=== PATIENT | male | born 1945 | race Caucasian/White ===

== ENCOUNTER → 2016-09-29 | Outpatient (CLI) | payer OTHER, MEDICAID | LOC: BHFA 13:15 | PROVIDERS: ATTEND Internal Medicine Cardiovascular Disease | DX: R09.89 Other specified symptoms and signs involving the circulatory and respiratory systems (principal) ==

== ENCOUNTER 2017-03-16 06:54 | Observation (INO) | payer OTHER, MEDICAID ==
--- NOTE | 2017-03-16 07:20 | EDPHY ---
HPI/HX/ROS/PE/MDM Narrative: CHIEF COMPLAINT: Nausea, vomiting HISTORY OF PRESENT ILLNESS: This is a 71-year-old male with history of type 2 diabetes as well as a history of a splenic abscess who presents with nausea and vomiting since 2 o'clock this morning. Patient woke his complaining of significant nausea. They report approximately 10 episodes of vomiting with " red brown" material. Patient has also had diarrhea. He denies a fever although he was quite chilled. reports that he is very diaphoretic whenever he vomits. He denies abdominal pain. History of lightheadedness, syncope, urinary complaints, chest pain, shortness of breath. Patient does have a history of neuropathy and uses marijuana products as well as CBD orals to control pain. He denies a recent increase in use. No history of ulcer disease, reflux, diverticulitis, or abdominal surgeries. states he has using metformin to control his diabetes. REVIEW OF SYSTEMS: Aside from elements discussed in the HPI, a comprehensive 10-point review of systems was reviewed and is negative. PAST MEDICAL HISTORY: Diabetes mellitus type II, splenic abscess. SOCIAL HISTORY: Nonsmoker, at bedside. Marijuana use for pain control. VITAL SIGNS: Reviewed by me GENERAL: Chills. Well-developed, well-nourished, resting comfortably in no respiratory distress. HEENT: Atraumatic. Eyes: No icterus, no injection. Mouth: dry mucous membranes. No erythema or lesions. Neck: supple with no adenopathy. LUNGS: Clear to auscultation bilaterally, no wheezes, rhonchi or rales. CARDIAC: Regular rate and rhythm, no rubs, murmurs or gallops. ABDOMEN: Soft, nontender, nondistended, bowel sounds normal. RECTAL: Large hemorrhoid. Greenish stool on glove. BACK: No CVA tenderness. EXTREMITIES: No trauma. No edema. Range of motion is normal throughout. NEURO: Alert and oriented, grossly nonfocal. SKIN: Cool and dry, no rash. PSYCHIATRIC: Normal mentation, no agitation. Portions of this note were transcribed by a medical office secretary. I personally performed a history, physical exam, medical decision making, and confirmed accuracy of information the transcribed note. ED Course: The 12 lead EKG was interpreted by myself. See hard copy and/or "tracemaster" electronic copy for interpretation. Sinus rhythm, rate 89. This patient is a 71 year old male presenting with five hour history of nausea and vomiting. Plan for IV fluids, Zofran for nausea, further evaluation. WBC elevated at 24. Plan for UA, CT abdomen. Stool positive for blood. Formed bowel movement, dark. 9:10 CT abdomen unremarkable. Splenic abscess reduced from last CT. Plan to admit for continued management of nausea and vomiting, further evaluation of elevated white blood cell count. 9:33 Spoke with hospitalist service. Dr. Tellez accepts admission. MDM: After obtaining the patients history and performing an examination, differential diagnosis considered included but was not limited to appendicitis, cholecystitis, gastritis, pancreatitis, kidney stones, urinary tract infections and other causes. - Data Points Imaging Results: Imaging Impressions Abdomen CT 03/16/17 07:47 Impression: 1. Size of a splenic hypodensity/fluid collection is much smaller compared to July. The current lesion of 3.9 x 2.3 cm may represent residual scar. If patient clinically is acutely infected, this may represent recurrent abscess, although I think imaging kapoor that is less likely. 2. Otherwise, stable CT scan without anything acute. Findings and recommendations discussed with Francine Muñoz M.D. at 0910 hours on March 16, 2017. Final report concurs with initial preliminary interpretation. Imaging: Discussed imaging studies w/ will call order clerk Radiologist Laboratory Results: Laboratory Results 03/16/17 07:18 03/16/17 07:18 03/16/17 03/16/17 03/16/17 07:18 07:18 07:15 WBC 24.28 10^3/uL H 10^3/uL (3.80-9.50) RBC 5.02 10^6/uL 10^6/uL (4.40-6.38) Hgb 15.4 g/dL g/dL (13.7-17.5) POC Hgb 16.7 gm/dL gm/dL (13.7-17.5) Hct 44.6 % % (40.0-51.0) POC Hct 49 % % (40-51) MCV 88.8 fL fL (81.5-99.8) MCH 30.7 pg pg (27.9-34.1) MCHC 34.5 g/dL g/dL (32.4-36.7) RDW 13.3 % % (11.5-15.2) Plt Count 466 10^3/uL H 10^3/uL (150-400) MPV 10.5 fL fL (8.7-11.7) Neut % (Auto) 92.9 % H % (39.3-74.2) Lymph % (Auto) 4.1 % L % (15.0-45.0) [place] % (Auto) 1.9 % L % (4.5-13.0) Eos % (Auto) 0.0 % L % (0.6-7.6) Baso % (Auto) 0.3 % % (0.3-1.7) Nucleat RBC Rel Count 0.0 % % (0.0-0.2) Absolute Neuts (auto) 22.57 10^3/uL H 10^3/uL (1.70-6.50) Absolute Lymphs (auto) 0.99 10^3/uL L 10^3/uL (1.00-3.00) Absolute Monos (auto) 0.45 10^3/uL 10^3/uL (0.30-0.80) Absolute Eos (auto) 0.00 10^3/uL L 10^3/uL (0.03-0.40) Absolute Basos (auto) 0.07 10^3/uL 10^3/uL (0.02-0.10) Absolute Nucleated RBC 0.00 10^3/uL 10^3/uL (0-0.01) Immature Gran % 0.8 % % (0.0-1.1) Immature Gran # 0.20 10^3/uL H 10^3/uL (0.00-0.10) POC Sodium 141 mEq/L mEq/L (134-144) Sodium 143 mEq/L mEq/L (134-144) POC Potassium 3.6 mEq/L mEq/L (3.3-5.0) Potassium 4.2 mEq/L mEq/L (3.5-5.2) POC Chloride 101 mEq/L mEq/L (97-110) Chloride 105 mEq/L mEq/L (97-110) Carbon Dioxide 20 mEq/l L mEq/l (22-31) Anion Gap 18 mEq/L H mEq/L (8-16) POC BUN 23 mg/dL mg/dL (7-23) BUN 21 mg/dL mg/dL (7-23) Creatinine 0.8 mg/dL mg/dL (0.7-1.3) POC Creatinine 0.8 mg/dL mg/dL (0.7-1.3) Estimated GFR > 60 Glucose 259 mg/dL H mg/dL (70-100) POC Glucose 255 mg/dL H mg/dL (70-100) Calcium 9.9 mg/dL mg/dL (8.5-10.4) Total Bilirubin 1.1 mg/dL mg/dL (0.1-1.4) Conjugated Bilirubin 0.4 mg/dL mg/dL (0.0-0.5) Unconjugated Bilirubin 0.7 mg/dL mg/dL (0.0-1.1) AST 23 IU/L IU/L (17-59) ALT 33 IU/L IU/L (21-72) Alkaline Phosphatase 87 IU/L IU/L (38-126) Troponin I < 0.012 ng/mL ng/mL (0-0.034) Total Protein 7.3 g/dL g/dL (6.3-8.2) Albumin 4.7 g/dL g/dL (3.5-5.0) Lipase 220.0 IU/L IU/L (23-300) Medications Given: Discontinued Medications Sodium Chloride (Ns) 1,000 mls @ 0 mls/hr IV ONCE ONE; Wide Open PRN Reason: Protocol Stop: 03/16/17 07:47 Last Admin: 03/16/17 07:49 Dose: 1,000 mls Lorazepam (Ativan Injection) 0.5 mg IVP ONCE ONE Stop: 03/16/17 10:48 Last Admin: 03/16/17 10:54 Dose: 0.5 mg Ondansetron HCl (Zofran) 4 mg IVP EDNOW ONE Stop: 03/16/17 08:44 Last Admin: 03/16/17 08:44 Dose: 4 mg Promethazine HCl (Phenergan) 12.5 mg IVP ONCE ONE Stop: 03/16/17 09:51 Last Admin: 03/16/17 09:50 Dose: 12.5 mg Point of Care Test Results: 03/16/17 07:15 POC Sodium 141 POC Potassium 3.6 POC Chloride 101 POC BUN 23 POC Creatinine 0.8 POC Glucose 255 H General Time Seen by Provider: 03/16/17 07:07 Initial Vital Signs: Initial Vital Signs Temperature (C) 36.5 C 03/16/17 06:59 Heart Rate 93 03/16/17 06:59 Respiratory Rate 18 03/16/17 06:59 Blood Pressure 164/86 H 03/16/17 06:59 O2 Sat (%) 99 03/16/17 06:59 O2 Delivery Mode Room Air Allergies/Adverse Reactions: No Known Allergies Allergy (Unverified 08/09/16 15:00) Home Medications: Medication Instructions Recorded Aspirin [Aspirin 81mg (*)] 81 mg PO DAILY 03/16/17 DULoxetine [Cymbalta 60 MG (*)] 60 mg PO DAILY 03/16/17 Herbals/Supplements -Info Only 1 ea PO DAILY 03/16/17 Ondansetron Odt [Zofran Odt 4 mg 4 mg PO Q8 PRN 03/16/17 (*)] Pregabalin [Lyrica 50mg (*)] 100 mg PO HS 03/16/17 Tramadol HCl 50 mg PO BID PRN 03/16/17 amLODIPine BESYLATE [Norvasc 5 mg 5 mg PO HS 03/16/17 (*)] Vancomycin [Vancocin Oral Liquid] 125 mg PO DAILY #56 udl 03/17/17 Departure - Departure Disposition: [facility] Inpatient Acute Clinical Impression: Nausea & vomiting Qualifiers: Vomiting type: unspecified Vomiting Intractability: intractable Qualified Code( s): R11.2 - Nausea with vomiting, unspecified Condition: Fair Report Scribed for: Francine Muñoz Report Scribed by: Kita Cortes Date of Report: 03/16/17 Time of Report: 07:20
[2017-03-16] MEDS ORDERED: NS 1,000 ML IV ONE (07:46)
[2017-03-16 07:52] LABS: % IMMATURE GRANULYOCYTES 0.8 % (0.0-1.1); ADD DIFF? NO; ADD MORPH? NO; ADD SCAN? NO; ATYPICAL LYMPHOCYTE FLAG 0 (0-99); FRAGMENT RBC FLAG 0 (0-99); HEMATOCRIT 44.6 % (40.0-51.0); HEMOGLOBIN 15.4 g/dL (13.7-17.5); LEFT SHIFT FLG 0 (0-99); LIPEMIA HEMOLYSIS FLAG 90 (0-99); MEAN CELL HEMOGLOBIN 30.7 pg (27.9-34.1); MEAN CELL HEMOGLOBIN CONCENTR. 34.5 g/dL (32.4-36.7); MEAN CELL VOLUME 88.8 fL (81.5-99.8); MEAN PLATELET VOLUME 10.5 fL (8.7-11.7); PLATELET CLUMPS FLAG 0 (0-99); PLATELET COUNT 466 10^3/uL (150-400); RED BLOOD CELL COUNT 5.02 10^6/uL (4.40-6.38); RED CELL DISTRIBUTION WIDTH 13.3 % (11.5-15.2)
[2017-03-16 07:59] LABS: ALANINE AMINOTRANSFERASE 33 IU/L (21-72); ALBUMIN 4.7 g/dL (3.5-5.0); ALKALINE PHOSPHATASE 87 IU/L (38-126); ANION GAP 18 mEq/L (8-16); ASPARTATE AMINOTRANSFERASE 23 IU/L (17-59); BILIRUBIN,TOTAL 1.1 mg/dL (0.1-1.4); BILIRUBIN-CONJUGATED 0.4 mg/dL (0.0-0.5); BILIRUBIN-UNCONJUGATED 0.7 mg/dL (0.0-1.1); CALCIUM 9.9 mg/dL (8.5-10.4); CARBON DIOXIDE 20 mEq/l (22-31); CHLORIDE 105 mEq/L (97-110); CREATININE 0.8 mg/dL (0.7-1.3); GLOMERULAR FILTRATION RATE > 60; GLUCOSE 259 mg/dL (70-100); POTASSIUM 4.2 mEq/L (3.5-5.2); SODIUM 143 mEq/L (134-144); TOTAL PROTEIN 7.3 g/dL (6.3-8.2)
--- NOTE | 2017-03-16 08:00 | CPEKG ---
Heart Rate: 89 RR Interval: 674 P-R Interval: 156 QRSD Interval: 92 QT Interval: 352 QTC Interval: 429 P [place]: 69 QRS [place]: 63 T Wave [place]: -71 EKG Severity - BORDERLINE ECG - EKG Impression: SINUS RHYTHM EKG Impression: LOW VOLTAGE IN FRONTAL LEADS EKG Impression: BORDERLINE T ABNORMALITIES, DIFFUSE LEADS Electronically Signed By: Jack Pope 19-Mar-2017 14:57:55
[2017-03-16] MEDS ORDERED: IOPAMIDOL (ISOVUE-300) 100 ML BTL ONE (08:08)
[2017-03-16 08:10] LABS: TROPONIN I < 0.012 ng/mL (0-0.034)
[2017-03-16] MEDS ORDERED: ONDANSETRON 4 MG/2 ML VIAL ONE (08:27)
[2017-03-16] MEDS ORDERED: ONDANSETRON 4 MG/2 ML VIAL IVP ONE (08:43)
[2017-03-16 08:46] LABS: COLOR YELLOW; LEUKOCYTE ESTERASE,URINE NEGATIVE (NEGATIVE); NITRITE,URINE NEGATIVE (NEGATIVE)
[2017-03-16 08:53] LABS: MUCUS TRACE /lpf (NONE-1+)
[2017-03-16] MEDS ORDERED: PROMETHAZINE HCL 25 MG/ML INJ ONE (09:44)
[2017-03-16] MEDS ORDERED: PROMETHAZINE HCL 25 MG/ML INJ IVP ONE (09:50)
[2017-03-16] MEDS ORDERED: LORazepam 2 MG/ML INJ IVP ONE (10:47)
[2017-03-16] MEDS ORDERED: LORazepam 2 MG/ML INJ ONE (10:51)
[2017-03-16] MEDS ORDERED: ACETAMINOPHEN 325 MG TAB PO PRN (11:24)
[2017-03-16] MEDS ORDERED: PROMETHAZINE HCL 25 MG/ML INJ IVP PRN (11:24)
[2017-03-16] MEDS ORDERED: ONDANSETRON DISINTEGRATING 4 MG TAB PO PRN (11:24)
[2017-03-16] MEDS ORDERED: D50W 25 GM/50 ML SYR IVP PRN (11:26)
[2017-03-16] MEDS: METOCLOPRAMIDE 10 MG/2 ML VIAL IVP PRN ×2 (11:53→18:37)
[2017-03-16] MEDS: NS 1,000 ML IV SCH ×2 (11:53→18:38)
[2017-03-16] MEDS: ONDANSETRON 4 MG/2 ML VIAL IVP PRN ×2 (12:38→16:59)
[2017-03-16] MEDS: INSULIN LISPRO 100 UNIT/ML SC SCH ×2 (12:46→18:37)
--- NOTE | 2017-03-16 12:56 | GHP ---
[f rep st] HISTORY AND PHYSICAL DATE OF ADMISSION: 03/16/2017 CHIEF COMPLAINT: Vomiting. HISTORY OF PRESENT ILLNESS: This is a 71-year-old male with a history of type 2 diabetes, periphera l neuropathy, and some issues with chronic nausea. He developed acute onset of vomiting last night. After a while, there was a little bit of blood. He denies any abdominal pain. He does admit to d iarrhea. No fevers, but does have some chills. No sick contacts. No suspicious foods. No abdomin al pain. REVIEW OF SYSTEMS: A 10-point review of systems was obtained, other than stated above is negative. PAST MEDICAL HISTORY: 1. Type 2 diabetes. 2. Peripheral neuropathy. 3. Hypertension. 4. History of coronary artery disease. 5. Peripheral vascular disease. 6. Splenic hematoma last July. MEDICATIONS: Reviewed. SOCIAL HISTORY: No smoking. Does use medical marijuana on a daily basis for neuropathy. FAMILY HISTORY: Reviewed and noncontributory. PHYSICAL EXAM: VITAL SIGNS: Afebrile, blood pressure is 152/83, heart rate 99, oxygen saturation 9 8% on room air. GENERAL: The patient is well developed, in no apparent distress. HEENT: Nonicter ic sclerae. Extraocular movements intact. Moist mucous membranes. NECK: Supple. No thyromegaly. LUNGS: Good effort. Clear to auscultation bilaterally. CARDIOVASCULAR: Regular rate and rhythm . No murmurs, rubs, or gallops. ABDOMEN: Positive bowel sounds, soft, nontender, nondistended. N o hepatosplenomegaly. EXTREMITIES: No clubbing, cyanosis, or edema. SKIN: Without rash, dry, int act. NEUROLOGIC: Alert and oriented x3. Moving all 4 extremities equally. PSYCH: Normal mood an d affect. LABORATORY DATA: White blood cell count elevated at 24, CO2 is 20, anion gap is 18, glucose 259. H is LFTs are normal. UA is negative. CT scan of the abdomen and pelvis shows stable scarring of the spleen where the previous hematoma was, but no other acute abnormalities. EKG personally reviewed and interpreted. Showed normal sinus rhythm. No ischemic changes. ASSESSMENT: This is a 71-year-old male presenting with acute nausea and vomiting with some diarrhea . PLAN: 1. Nausea, vomiting. This could be gastroenteritis. He does use CBD tincture daily and does have some chronic nausea, and thus marijuana hyperemesis is possible as well. He denies any abdominal pa in. CT scan is negative for any obstruction or appendicitis. The plan will be to continue to monit or, give IV fluids. I will check a GI pathogen panel. I think this is probably gastroenteritis. 2. Small amount of hematemesis. Will monitor his blood counts. This is probably due to Mariella-We iss tearing. 3. Type 2 diabetes. Will use sliding scale insulin. 4. Hypertension. Continue medications. 5. Admission. Patient will be admitted under observation status. Case was discussed with ER physi reuben. Old records were reviewed and summarized in the HPI. /[id number]/MODL
[2017-03-16] MEDS: LORazepam 2 MG/ML INJ IVP PRN (18:37)
[2017-03-17] MEDS: LORazepam 2 MG/ML INJ IVP PRN (02:58)
[2017-03-17 05:42] LABS: % IMMATURE GRANULYOCYTES 0.6 % (0.0-1.1); ABSOLUTE IMMATURE GRANULOCYTES 0.13 10^3/uL (0.00-0.10); ADD DIFF? NO; ADD MORPH? NO; ADD SCAN? NO; ATYPICAL LYMPHOCYTE FLAG 0 (0-99); FRAGMENT RBC FLAG 0 (0-99); HEMATOCRIT 38.6 % (40.0-51.0); HEMOGLOBIN 13.2 g/dL (13.7-17.5); LEFT SHIFT FLG 0 (0-99); LIPEMIA HEMOLYSIS FLAG 90 (0-99); MEAN CELL HEMOGLOBIN CONCENTR. 34.2 g/dL (32.4-36.7); MEAN CELL VOLUME 90.6 fL (81.5-99.8); MEAN PLATELET VOLUME 10.5 fL (8.7-11.7); PLATELET CLUMPS FLAG 0 (0-99); PLATELET COUNT 372 10^3/uL (150-400); RED BLOOD CELL COUNT 4.26 10^6/uL (4.40-6.38); RED CELL DISTRIBUTION WIDTH 13.4 % (11.5-15.2)
[2017-03-17 06:04] LABS: ALANINE AMINOTRANSFERASE 34 IU/L (21-72); ALBUMIN 3.7 g/dL (3.5-5.0); ALKALINE PHOSPHATASE 60 IU/L (38-126); ANION GAP 12 mEq/L (8-16); ASPARTATE AMINOTRANSFERASE 34 IU/L (17-59); CALCIUM 8.9 mg/dL (8.5-10.4); CARBON DIOXIDE 21 mEq/l (22-31); CHLORIDE 112 mEq/L (97-110); CREATININE 0.8 mg/dL (0.7-1.3); GLOMERULAR FILTRATION RATE > 60; GLUCOSE 164 mg/dL (70-100); POTASSIUM 3.6 mEq/L (3.5-5.2); SODIUM 145 mEq/L (134-144); TOTAL PROTEIN 5.9 g/dL (6.3-8.2)
[2017-03-17] MEDS: NS 1,000 ML IV SCH (06:10)
[2017-03-17] MEDS: VANCOMYCIN 125 MG/2.5 ML UDL PO SCH ×2 (08:22→12:31)
[2017-03-17] MEDS: INSULIN LISPRO 100 UNIT/ML SC SCH ×2 (08:31→12:31)
[2017-03-17] MEDS ORDERED: ENOXAPARIN 40 MG/0.4 ML SYR SC SCH ×2 (09:00→10:00)
[2017-03-17] MEDS ORDERED: traMADol 50 MG TAB PO PRN (10:01)
[2017-03-17] MEDS ORDERED: DULoxetine 60 MG CAP PO SCH (10:15)
[2017-03-17] MEDS ORDERED: ASPIRIN 81 MG CHEWABLE TAB PO SCH (10:15)
[2017-03-17 12:17] VITALS: BP 176/104; PULSE 94; RESP 12; TEMP 99.3; O2SAT 97
--- NOTE | 2017-03-17 14:14 | GDS ---
[f rep st] DISCHARGE SUMMARY DISCHARGE DIAGNOSES: 1. Clostridium difficile colitis. 2. Type 2 diabetes. 3. Peripheral neuropathy. 4. History of coronary artery disease. HISTORY: A 71-year-old male, who presented with acute vomiting and diarrhea. HOSPITAL COURSE: Patient was admitted. Initial CT scan did not show any significant abnormalities. Stool came back positive for Clostridium difficile. He was started on oral vancomycin. He is imp roving. He is tolerating p.o. liquids and foods and diarrhea has subsided and he is not having any abdominal pain. He will be discharged home. DISPOSITION: Home. DISCHARGE MEDICATIONS: He is to resume all his home medicines. In addition, begin vancomycin 125 m g p.o. 4 times daily for a 14 day course. /[id number]/MODL
[2017-03-17] MEDS ORDERED: PREGABALIN 50 MG CAP PO SCH (21:00)
[2017-03-17] MEDS ORDERED: amLODIPine BESYLATE 5 MG TAB PO SCH (21:00)
== END 2017-03-17 14:47 | disposition home or self-care (01) ==
LOC: F3N 10:25
PROVIDERS: ADMIT Internal Medicine; ATTEND Internal Medicine
DX: E11.9 Type 2 diabetes mellitus without complications (principal); R19.7 Diarrhea, unspecified; K92.0 Hematemesis; I10 Essential (primary) hypertension; I25.10 Atherosclerotic heart disease of native coronary artery without angina pectoris; G62.9 Polyneuropathy, unspecified; I73.9 Peripheral vascular disease, unspecified; Z79.84 Long term (current) use of oral hypoglycemic drugs; Z11.2 Encounter for screening for other bacterial diseases
CPT/HCPCS: 74177; 93005; G0378; J1650; J1815; J2060; J2405; J2550; J2765; Q9967; 82947-QW

== ENCOUNTER → 2017-11-12 | Outpatient (CLI) | payer OTHER, MEDICAID | LOC: FIMAGING 11:24 | PROVIDERS: ATTEND Physician Assistant | DX: M51.36 Other intervertebral disc degeneration, lumbar region (principal) ==

== ENCOUNTER 2018-01-21 11:22 | Emergency (ER) | payer OTHER, MEDICAID ==
[2018-01-21] MEDS ORDERED: ONDANSETRON 4 MG/2 ML VIAL IVP ONE (11:55)
[2018-01-21] MEDS ORDERED: NS 1,000 ML IV ONE ×2 (11:55→12:59)
--- NOTE | 2018-01-21 12:48 | EDPHY ---
H & P Stated Complaint: nausea diarrhea since midnight Time Seen by Provider: 01/21/18 12:30 HPI/ROS: CHIEF COMPLAINT: Intractable nausea vomiting diarrhea since midnight HISTORY OF PRESENT ILLNESS: 72-year-old male history of yyn-hucemmu-yqcckjzyu diabetes, complaining of intractable nausea, vomiting with mild diarrhea since midnight as well as complaints of epigastric "fullness". No chest pain. No dyspnea. No back pain. No dyspnea. No dizziness. No syncope or near syncope. REVIEW OF SYSTEMS: A ten point review of systems was performed and is negative with the exception of the items mentioned in the HPI PAST MEDICAL & SURGICAL HISTORY: Vnh-dbyezka-bbiqddgft diabetes. Lower extremity neuropathy and chronic pain. Peripheral artery disease. Coronary artery disease. C diff colitis. SOCIAL HISTORY: Daily marijuana use PHYSICAL EXAM (Prior to examination, patient consented to physical exam, hands were washed and my usual and customary physical exam procedures followed) 1) GENERAL: Well-developed, well-nourished, alert and oriented. Appears uncomfortable 2) HEAD: Normocephalic, atraumatic 3) HEENT: Pupils equal, round, reactive to light bilaterally. Sclera anicteric. Nasopharynx, oropharynx, clear, no lesions. Dry mucous membranes 4) NECK: Full range of motion, no meningeal signs. 5) LUNGS: Clear auscultation bilaterally, no wheezes, no rhonchi, no retractions. 6) HEART: Regular rate and rhythm, no murmur, no heave, no gallop. 7) ABDOMEN: No guarding, mild tenderness to palpation epigastrium, negative McBurney's, negative Swanson's, negative Rovsing's, negative peritoneal sign, 8) MUSCULOSKELETAL: Moving all extremities, no focal areas of tenderness, no obvious trauma. No peripheral edema or discoloration. 9) BACK: No CVA tenderness, no midline vertebral tenderness, no fluctuance, no step-off, no obvious trauma, no visual or palpable abnormality. 10) SKIN: No rash, no petechiae. 11) Psychiatric: Patient is oriented X 3, there is no agitation. 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 neuropathy, type 2 diabetes, splenic absess, CAD, PAD,daily thc use - Social History Smoking Status: Former smoker Constitutional: Initial Vital Signs Temperature (C) 36.6 C 01/21/18 11:26 Heart Rate 95 01/21/18 11:26 Respiratory Rate 18 01/21/18 11:26 Blood Pressure 154/95 H 01/21/18 11:26 O2 Sat (%) 99 01/21/18 11:26 O2 Delivery Mode Room Air Allergies/Adverse Reactions: No Known Allergies Allergy (Verified 01/21/18 11:25) Home Medications: Medication Instructions Recorded Aspirin [Aspirin 81mg (*)] 81 mg PO DAILY 03/16/17 DULoxetine [Cymbalta 60 MG (*)] 60 mg PO DAILY 03/16/17 Herbals/Supplements -Info Only 1 ea PO DAILY 03/16/17 Ondansetron Odt [Zofran Odt 4 mg 4 mg PO Q8 PRN 03/16/17 (*)] Pregabalin [Lyrica 50mg (*)] 100 mg PO HS 03/16/17 Tramadol HCl 50 mg PO BID PRN 03/16/17 amLODIPine BESYLATE [Norvasc 5 mg 5 mg PO HS 03/16/17 (*)] Promethazine HCl [Phenergan] 25 mg PO Q6 #10 tab 01/21/18 Medical Decision Making - Diagnostics Imaging Results: Imaging Impressions Chest X-Ray 01/21/18 12:44 Impression: Suspect progressive interstitial lung disease since 2015. Possible viral pneumonitis versus other interstitial lung disease. If clinically indicated noncontrast high-resolution chest CT would be useful to better characterize the interstitial lung disease. Abdomen CT 01/21/18 12:59 Impression: 1. No bowel obstruction, pneumoperitoneum, or focal abscess. 2. Splenic subcapsular fluid collection appears stable since March 2017. 3. 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 4. Atherosclerotic aorta, without aneurysm. 5. Limited due to lack of oral contrast. Findings and recommendations discussed with Emergency Department physician, Weston Coles PA-C, at 1440 hours, on January 21, 2018. Final report concurs with initial preliminary interpretation. Images reviewed myself ED Course/Re-evaluation: Care of patient under supervision of secondary supervising physician Dr Pope with whom I discussed case 12:59 p.m.: BUN creatinine ratio 31 consistent with volume depletion. Will continue administration of IV fluids. 1:58 p.m.: Re-evaluation, resting comfortably, abdomen soft no guarding no rebound no focal tenderness. He would like to attempt oral fluid challenge. Doubt DKA. Doubt bowel obstruction. Doubt acute surgical abdominal pathology such as acute appendicitis. 2:48 p.m.: Re-evaluation resting comfortably, tolerating oral intake. Feels comfortable being discharged home. I do not think that admission is currently indicated. - Data Points Laboratory Results: Laboratory Results 01/21/18 11:54 01/21/18 11:54 01/21/18 01/21/18 11:54 11:54 WBC 12.99 10^3/uL H 10^3/uL (3.80-9.50) RBC 5.36 10^6/uL 10^6/uL (4.40-6.38) Hgb 16.2 g/dL g/dL (13.7-17.5) Hct 47.2 % % (40.0-51.0) MCV 88.1 fL fL (81.5-99.8) MCH 30.2 pg pg (27.9-34.1) MCHC 34.3 g/dL g/dL (32.4-36.7) RDW 13.8 % % (11.5-15.2) Plt Count 349 10^3/uL 10^3/uL (150-400) MPV 11.5 fL fL (8.7-11.7) Neut % (Auto) 94.4 % H % (39.3-74.2) Lymph % (Auto) 3.7 % L % (15.0-45.0) [place] % (Auto) 1.2 % L % (4.5-13.0) Eos % (Auto) 0.0 % L % (0.6-7.6) Baso % (Auto) 0.2 % L % (0.3-1.7) Nucleat RBC Rel Count 0.0 % % (0.0-0.2) Absolute Neuts (auto) 12.26 10^3/uL H 10^3/uL (1.70-6.50) Absolute Lymphs (auto) 0.48 10^3/uL L 10^3/uL (1.00-3.00) Absolute Monos (auto) 0.16 10^3/uL L 10^3/uL (0.30-0.80) Absolute Eos (auto) 0.00 10^3/uL L 10^3/uL (0.03-0.40) Absolute Basos (auto) 0.03 10^3/uL 10^3/uL (0.02-0.10) Absolute Nucleated RBC 0.00 10^3/uL 10^3/uL (0-0.01) Immature Gran % 0.5 % % (0.0-1.1) Seg Neutrophils % 94 % % Lymphocytes % 6 % % Immature Gran # 0.06 10^3/uL 10^3/uL (0.00-0.10) RBC/WBC/PLT Morphology NORMAL (NORMAL) Atypical Lymphocytes 1+ H Platelet Estimate ADEQUATE (ADEQ) Turbidity < 20 Sodium 146 mEq/L H mEq/L (135-145) Potassium 4.6 mEq/L mEq/L (3.3-5.0) Chloride 107 mEq/L mEq/L (97-110) Carbon Dioxide 21 mEq/l L mEq/l (22-31) Anion Gap 18 mEq/L H mEq/L (8-16) BUN 25 mg/dL H mg/dL (7-23) Creatinine 0.8 mg/dL mg/dL (0.7-1.3) Estimated GFR > 60 Glucose 212 mg/dL H mg/dL (70-100) Calcium 9.9 mg/dL mg/dL (8.5-10.4) Total Bilirubin 0.9 mg/dL mg/dL (0.1-1.4) Conjugated Bilirubin 0.5 mg/dL mg/dL (0.0-0.5) Unconjugated Bilirubin 0.4 mg/dL mg/dL (0.0-1.1) AST 26 IU/L IU/L (17-59) ALT 28 IU/L IU/L (21-72) Alkaline Phosphatase 96 IU/L IU/L (38-126) Troponin I < 0.012 ng/mL ng/mL (0.000-0.034) Total Protein 8.0 g/dL g/dL (6.3-8.2) Albumin 4.8 g/dL g/dL (3.5-5.0) Lipase 154 IU/L IU/L (23-300) Beta-Hydroxybutyrate 0.63 mmol/L H mmol/L (0.02-0.27) Specimen Hemolysis 58 Serum Ketones Cancelled Medications Given: Discontinued Medications Sodium Chloride (Ns) 1,000 mls @ 0 mls/hr IV ONCE ONE PRN Reason: Wide Open Stop: 01/21/18 11:56 Last Admin: 01/21/18 12:06 Dose: 1,000 mls Sodium Chloride (Ns) 1,000 mls @ 0 mls/hr IV ONCE ONE PRN Reason: Wide Open Stop: 01/21/18 13:00 Last Admin: 01/21/18 13:35 Dose: 1,000 mls Ondansetron HCl (Zofran) 4 mg IVP EDNOW ONE Stop: 01/21/18 11:56 Last Admin: 01/21/18 12:06 Dose: 4 mg Promethazine HCl (Phenergan) 6.25 mg IVP ONCE ONE Stop: 01/21/18 13:19 Last Admin: 01/21/18 13:35 Dose: 6.25 mg Departure - Departure Disposition: Home, Routine, Self-Care Clinical Impression: Nausea vomiting and diarrhea, Volume depletion Condition: Good Instructions: Acute Nausea and Vomiting (ED) Additional Instructions: Seek immediate medical attention if you develop new or worsening symptoms, if you develop fevers, chills, inability to tolerate oral intake or any other symptoms that concerns you. Referrals: [facility] [Other] - 1 day without fail Prescriptions: Promethazine HCl [Phenergan] 25 mg PO Q6 #10 tab
[2018-01-21 12:50] LABS: PLATELET COUNT 349 10^3/uL (150-400)
--- NOTE | 2018-01-21 12:50 | CPEKG ---
Heart Rate: 94 RR Interval: 638 P-R Interval: 172 QRSD Interval: 84 QT Interval: 376 QTC Interval: 471 P [place]: 71 QRS [place]: 60 T Wave [place]: -9 EKG Severity - BORDERLINE ECG - EKG Impression: SINUS RHYTHM EKG Impression: LOW VOLTAGE IN FRONTAL LEADS EKG Impression: BORDERLINE T ABNORMALITIES, INFERIOR LEADS Electronically Signed By: Jack Pope 21-Jan-2018 14:59:01
[2018-01-21] MEDS ORDERED: IOPAMIDOL (ISOVUE-300) 100 ML BTL ONE (13:08)
[2018-01-21] MEDS ORDERED: PROMETHAZINE HCL 25 MG/ML INJ IVP ONE (13:18)
[2018-01-21 14:58] VITALS: BP 104/71
== END 2018-01-21 15:04 | disposition home or self-care (01) ==
DX: R11.2 Nausea with vomiting, unspecified (principal); R19.7 Diarrhea, unspecified; E86.9 Volume depletion, unspecified; I25.10 Atherosclerotic heart disease of native coronary artery without angina pectoris; E11.9 Type 2 diabetes mellitus without complications; Z79.82 Long term (current) use of aspirin; Z87.891 Personal history of nicotine dependence
CPT/HCPCS: 71046; 74177; 93005; 96361; 96374; 96375; 99285; J2405; J2550; Q9967